=== PATIENT | male | born 1985 | race Caucasian/White ===

== ENCOUNTER 2021-12-13 15:49 | Emergency (ER) | payer BC, OTHER ==
[2021-12-13 16:43] LABS: Appearance CLEAR (CLEAR); Bilirubin NEGATIVE (NEGATIVE); Blood NEGATIVE Ery/ul (0-5); Glucose NEGATIVE (NEGATIVE); Ketones NEGATIVE (NEGATIVE); Leukocyte Esterase NEGATIVE (NEGATIVE); Nitrite NEGATIVE (NEGATIVE); Protein,Urine Dip NEGATIVE (Negative); Urobilinogen NEGATIVE mg/dL (0-1)
[2021-12-13] MEDS ORDERED: Sodium Chloride 0.9% 1000 ML 1,000 ML IV STA (16:51)
[2021-12-13 16:58] LABS: Amphetamine,Urine NEGATIVE (NEGATIVE); Barbiturate,Urine NEGATIVE (NEGATIVE); Benzodiazepine,Urine NEGATIVE (NEGATIVE); Cocaine,Urine NEGATIVE (NEGATIVE); Methadone,Urine NEGATIVE (NEGATIVE); Opiate,Urine NEGATIVE (NEGATIVE); PCP,Urine NEGATIVE (NEGATIVE); THC,Urine NEGATIVE (NEGATIVE)
[2021-12-13] MEDS ORDERED: Sodium Chloride 0.9% 1000 ML 1,000 ML ONE (17:03)
[2021-12-13 17:08] VITALS: BP 107/62; PULSE 70; O2SAT 97
[2021-12-13 17:10] LABS: Absolute Neutrophil Ct (ANC) 4.46 (1.4-6.9); Basophil (Absolute #) 0.04 (0-0.4); Eosinophil % 1.6 % (0.00-5.0); Eosinophil (Absolute #) 0.11 (0-0.5); Hematocrit 40.2 % (42-50); Lymphocyte (Absolute #) 1.77 (1.0-4.6); Lymphocytes % 25.6 % (24.0-44.0); Mean Cell Volume 84.8 fl (78-100); Mean Corpuscular Hemoglobin 29.5 pg (26-32); Mean Corpuscular Hgb Concent. 34.8 g/dl (32-36); Mean Platelet Volume 10.4 fl (7.5-11.0); Monocyte (Absolute #) 0.53 (0.0-1.3); Monocytes % 7.7 % (0.0-12.0); Neutrophil % 64.5 % (36.0-66.0); Platelet Count 163 K/mm3 (150-450); Red Blood Count 4.74 M/mm3 (4.1-5.6); Red Cell Distribution Width 12.2 % (11.5-14.0); White Blood Count 6.9 K/mm3 (4.0-10.5)
[2021-12-13 17:23] LABS: ACETAMINOPHEN < 10 ug/ml (10-30); ALBUMIN 4.1 g/dL (3.5-5.0); ALKALINE PHOSPHATASE 58 U/L (38-126); AMYLASE 31 U/L (30-110); ANION GAP 10.4 MEQ/L (5-15); BLOOD UREA NITROGEN 14 mg/dL (9-20); CHLORIDE 105 mmol/L (98-107); Calcium 9.2 mg/dL (8.4-10.2); Carbon Dioxide 25 mmol/L (22-30); Creatinine 1 0.71 mg/dL (0.66-1.25); EST GLOMERULAR FILTRATION RATE > 60.0 ML/MIN; Glucose 105 mg/dL (74-106); LIPASE 36 U/L (23-300); MAGNESIUM 1.8 mg/dL (1.6-2.3); Potassium 3.5 mmol/L (3.5-5.1); SALICYLATE < 1.0 mg/dL (2-20); SGOT/AST 24 U/L (17-59); SGPT/ALT 15 U/L (0-50); SODIUM 138 mmol/L (137-145); Total Protein 6.5 g/dL (6.3-8.2)
--- NOTE | 2021-12-13 17:45 | ERPHSYRPT ---
- History of Present Illness Time Seen by Provider: 12/13/21 16:15 Source: patient Exam Limitations: no limitations Patient Subjective Stated Complaint: pt reports approx 1300 today he was experiencing a headache, states that his friend gave him an orange pill, pt states approx 45 mins after he took the pill he began to feel dizzy and a little bit tired which made him anxious. pt states he did not think to ask his friend what pill he gave him. Triage Nursing Assessment: pt is aox3, pt appears very anxious, pt continuously tapping/shaking his legs, afebrile, resps easy and non labored, cap refill < 3 seconds, radial pulses strong and equal, pt skin pink warm dry. Physician History: Patient is a 36-year-old white male who was hunting with a body when he developed a headache. He asked his body if he had any Tylenol or aspirin or Advil and his friend gave him a orange pill. He did not bother to ask him what the identification of the medication was. About 45 minutes later he became somewhat lightheaded and dizzy. He has no other symptoms. Timing/Duration: today Head Pain Location: global Severity of Pain-Max: mild Severity of Pain-Current: mild Recent Head Trauma: no recent headache/trauma Modifying Factors: Improves With: exposure to light Associated Symptoms: dizziness, light-headedness Previous symptoms: no prior history Allergies/Adverse Reactions: No Known Drug Allergies Allergy (Unverified 12/13/21 16:12) Hx Tetanus, Diphtheria Vaccination/Date Given: Yes Hx Influenza Vaccination/Date Given: No Hx Pneumococcal Vaccination/Date Given: No Immunizations Up to Date: Yes Travel Risk - International Travel Have you traveled outside of the country in past 3 weeks: No - Coronavirus Screening Are you exhibiting any of the following symptoms?: No Close contact with a COVID-19 positive Pt in past 14-21 Days: No - Vaccine Status Have you recieved a Covid-19 vaccination: No - Review of Systems Constitutional: No Fever, No Chills Eyes: No Symptoms Ears, Nose, & Throat: No Symptoms Respiratory: No Cough, No Dyspnea Cardiac: No Chest Pain, No Edema, No Syncope Abdominal/Gastrointestinal: No Abdominal Pain, No Nausea, No Vomiting, No Diarrhea Genitourinary Symptoms: No Dysuria Musculoskeletal: No Back Pain, No Neck Pain Skin: No Rash Neurological: Headache, No Dizziness, No Focal Weakness, No Sensory Changes Psychological: No Symptoms Endocrine: No Symptoms All Other Systems: Reviewed and Negative - Past Medical History Pertinent Past Medical History: Yes Other Medical History: shoulder injury. back pain - Past Surgical History Past Surgical History: No - Social History Smoking Status: Never smoker Drug Use: none Patient Lives Alone: No - Nursing Vital Signs Nursing Vital Signs: Initial Vital Signs Temperature 98.0 F 12/13/21 16:04 Pulse Rate 81 12/13/21 16:04 Respiratory Rate 20 12/13/21 16:04 Blood Pressure 132/73 12/13/21 16:04 O2 Sat by Pulse Oximetry 100 12/13/21 16:04 Pain Scale Pain Intensity 0 - Physical Exam General Appearance: no apparent distress Eye Exam: PERRL/EOMI Ears, Nose, Throat Exam: normal ENT inspection, moist mucous membranes Neck Exam: normal inspection, supple, full range of motion, No meningismus Respiratory Exam: normal breath sounds, lungs clear Cardiovascular Exam: regular rate/rhythm, normal heart sounds Gastrointestinal/Abdominal Exam: soft, No tenderness, No distention Back Exam: normal inspection, normal range of motion Mental Status Exam: alert, oriented x 3, cooperative type rolling machine operator Exam: normal speech, PERRL, No facial droop Coordination/Gait Exam: normal cerebellar function Motor/Sensory Exam: no motor deficit, no sensory deficit Skin Exam: normal color, warm, dry, No rash SpO2: 97 - Course Nursing assessment & vital signs reviewed: Yes Ordered Tests: Active Orders 24 hr Category Date Time Status Clean Catch Urine Specimen STAT Care 12/13/21 16:27 Active ACETAMINOPHEN Stat Lab 12/13/21 17:07 Completed AMYLASE Stat Lab 12/13/21 17:07 Completed CBC W DIFF Stat Lab 12/13/21 17:07 Completed CMP Stat Lab 12/13/21 17:07 Completed ETHYL ALCOHOL Stat Lab 12/13/21 17:07 Completed LIPASE Stat Lab 12/13/21 17:07 Completed MAGNESIUM Stat Lab 12/13/21 17:07 Completed POCT GLUCOSE Stat Lab 12/13/21 16:06 Completed SALICYLATE Stat Lab 12/13/21 17:07 Completed UA W/RFX UR CULTURE Stat Lab 12/13/21 16:28 Completed Urine Triage Profile Stat Lab 12/13/21 16:28 Completed Medication Summary Generic Name Dose Route Start Last Admin Trade Name Freq PRN Reason Stop Dose Admin Sodium Chloride 1,000 mls @ 999 mls/hr 12/13/21 16:51 12/13/21 17:06 Sodium Chloride 0.9% 1000 Ml IV 12/13/21 17:51 999 mls/hr .[id number] STA Administration Discontinued Medications Generic Name Dose Route Start Last Admin Trade Name Braden PRN Reason Stop Dose Admin Sodium Chloride Confirm 12/13/21 17:03 Sodium Chloride 0.9% 1000 Ml Administered 12/13/21 17:04 Dose 1,000 mls @ ud .ROUTE .STK-MED ONE Lab/Rad Data: Laboratory Result Diagrams 12/13/21 17:07 12/13/21 17:07 Laboratory Results 12/13/21 12/13/21 12/13/21 Range/Units 17:07 17:07 17:07 WBC 6.9 (4.0-10.5) K/mm3 RBC 4.74 (4.1-5.6) M/mm3 Hgb 14.0 (12.5-18.0) gm/dl Hct 40.2 L (42-50) % MCV 84.8 (78-100) fl MCH 29.5 (26-32) pg MCHC 34.8 (32-36) g/dl RDW 12.2 (11.5-14.0) % Plt Count 163 (150-450) K/mm3 MPV 10.4 (7.5-11.0) fl Gran % 64.5 (36.0-66.0) % Eos # (Auto) 0.11 (0-0.5) Absolute Lymphs (auto) 1.77 (1.0-4.6) Absolute Monos (auto) 0.53 (0.0-1.3) Lymphocytes % 25.6 (24.0-44.0) % Monocytes % 7.7 (0.0-12.0) % Eosinophils % 1.6 (0.00-5.0) % Basophils % 0.6 (0.0-0.4) % Absolute Granulocytes 4.46 (1.4-6.9) Basophils # 0.04 (0-0.4) Sodium 138 (137-145) mmol/L Potassium 3.5 (3.5-5.1) mmol/L Chloride 105 (98-107) mmol/L Carbon Dioxide 25 (22-30) mmol/L Anion Gap 10.4 (5-15) MEQ/L BUN 14 (9-20) mg/dL Creatinine 0.71 (0.66-1.25) mg/dL Estimated GFR > 60.0 ML/MIN Glucose 105 (74-106) mg/dL POC Glucometer (74 to 106) mg/dL Calcium 9.2 (8.4-10.2) mg/dL Magnesium 1.8 (1.6-2.3) mg/dL Total Bilirubin 1.90 H (0.2-1.3) mg/dL AST 24 (17-59) U/L ALT 15 (0-50) U/L Alkaline Phosphatase 58 (38-126) U/L Serum Total Protein 6.5 (6.3-8.2) g/dL Albumin 4.1 (3.5-5.0) g/dL Amylase 31 (30-110) U/L Lipase 36 (23-300) U/L Urine Color (YELLOW) Urine Appearance (CLEAR) Urine pH (5-6) Ur Specific [place] (1.005-1.025) Urine Protein (Negative) Urine Ketones (NEGATIVE) Urine Blood (0-5) Florin/ul Urine Nitrite (NEGATIVE) Urine Bilirubin (NEGATIVE) Urine Urobilinogen (0-1) mg/dL Ur Leukocyte Esterase (NEGATIVE) Urine WBC (Auto) (0-5) /HPF Urine RBC (Auto) (0-2) /HPF U Epithel Cells (Auto) (FEW) /HPF Urine Bacteria (Auto) (NEGATIVE) /HPF Urine Culture Reflexed (NO) Urine Glucose (NEGATIVE) mg/dL Salicylates < 1.0 L (2-20) mg/dL Urine Opiates Level (NEGATIVE) Ur Methadone (NEGATIVE) Acetaminophen < 10 L (10-30) ug/ml Urine Barbiturates (NEGATIVE) Ur Phencyclidine (PCP) (NEGATIVE) Urine Amphetamine (NEGATIVE) U Benzodiazepine Level (NEGATIVE) Urine Cocaine (NEGATIVE) Urine Marijuana (THC) (NEGATIVE) Ethyl Alcohol < 10 (0-10) mg/dL 12/13/21 12/13/21 12/13/21 Range/Units 16:28 16:28 16:06 WBC (4.0-10.5) K/mm3 RBC (4.1-5.6) M/mm3 Hgb (12.5-18.0) gm/dl Hct (42-50) % MCV (78-100) fl MCH (26-32) pg MCHC (32-36) g/dl RDW (11.5-14.0) % Plt Count (150-450) K/mm3 MPV (7.5-11.0) fl Gran % (36.0-66.0) % Eos # (Auto) (0-0.5) Absolute Lymphs (auto) (1.0-4.6) Absolute Monos (auto) (0.0-1.3) Lymphocytes % (24.0-44.0) % Monocytes % (0.0-12.0) % Eosinophils % (0.00-5.0) % Basophils % (0.0-0.4) % Absolute Granulocytes (1.4-6.9) Basophils # (0-0.4) Sodium (137-145) mmol/L Potassium (3.5-5.1) mmol/L Chloride (98-107) mmol/L Carbon Dioxide (22-30) mmol/L Anion Gap (5-15) MEQ/L BUN (9-20) mg/dL Creatinine (0.66-1.25) mg/dL Estimated GFR ML/MIN Glucose (74-106) mg/dL POC Glucometer 76 (74 to 106) mg/dL Calcium (8.4-10.2) mg/dL Magnesium (1.6-2.3) mg/dL Total Bilirubin (0.2-1.3) mg/dL AST (17-59) U/L ALT (0-50) U/L Alkaline Phosphatase (38-126) U/L Serum Total Protein (6.3-8.2) g/dL Albumin (3.5-5.0) g/dL Amylase (30-110) U/L Lipase (23-300) U/L Urine Color STRAW (YELLOW) Urine Appearance CLEAR (CLEAR) Urine pH 6.0 (5-6) Ur Specific [place] 1.000 (1.005-1.025) Urine Protein NEGATIVE (Negative) Urine Ketones NEGATIVE (NEGATIVE) Urine Blood NEGATIVE (0-5) Florin/ul Urine Nitrite NEGATIVE (NEGATIVE) Urine Bilirubin NEGATIVE (NEGATIVE) Urine Urobilinogen NEGATIVE (0-1) mg/dL Ur Leukocyte Esterase NEGATIVE (NEGATIVE) Urine WBC (Auto) NONE (0-5) /HPF Urine RBC (Auto) NONE (0-2) /HPF U Epithel Cells (Auto) NONE (FEW) /HPF Urine Bacteria (Auto) NONE (NEGATIVE) /HPF Urine Culture Reflexed NO (NO) Urine Glucose NEGATIVE (NEGATIVE) mg/dL Salicylates (2-20) mg/dL Urine Opiates Level NEGATIVE (NEGATIVE) Ur Methadone NEGATIVE (NEGATIVE) Acetaminophen (10-30) ug/ml Urine Barbiturates NEGATIVE (NEGATIVE) Ur Phencyclidine (PCP) NEGATIVE (NEGATIVE) Urine Amphetamine NEGATIVE (NEGATIVE) U Benzodiazepine Level NEGATIVE (NEGATIVE) Urine Cocaine NEGATIVE (NEGATIVE) Urine Marijuana (THC) NEGATIVE (NEGATIVE) Ethyl Alcohol (0-10) mg/dL - Progress Progress: improved Blood Culture(s) Obtained: No Antibiotics given: No - Departure Departure Disposition: Home Clinical Impression: Headache Condition: Stable Critical Care Time: No Referrals: DOCTOR,NO FAMILY [Primary Care Provider] - Follow up/PCP as directed Instructions: Headache, Adult (DC)
== END 2021-12-13 18:00 | disposition home or self-care (01) ==
LOC: ED 15:49
DX: R51.9 Headache, unspecified (principal); R42 Dizziness and giddiness
CPT/HCPCS: 36000; 36415; 80053; 80307; 81001; 82150; 82947; 83690; 83735; 85025; 96360; 99284; G0480